=== PATIENT | male | born 1960 | race Caucasian/White ===

== ENCOUNTER 2018-08-14 01:31 | Emergency (ER) | payer OTHER ==
[2018-08-14] MEDS ORDERED: NS 1,000 ML IV ONE (01:41)
[2018-08-14] MEDS ORDERED: levETIRAcetam 1000MG/NACL 100 ML IV ONE (01:45)
--- NOTE | 2018-08-14 01:45 | EDPHY ---
H & P Stated Complaint: Seizure Time Seen by Provider: 08/14/18 01:42 HPI/ROS: HPI CHIEF COMPLAINT: Seizure, bloody nose HISTORY OF PRESENT ILLNESS: This patient is a 58-year-old male, he arrives to the emergency room by EMS after he had what is believed to be a seizure. His called 911 for this seizure. His reports that she awoke this evening with loud respirations. She reports that her was face down the bed and she heard him breathing very funny and heavy and loud. This woke her from sleep. His face was down the pillow there was blood everywhere. Apparently had a bloody nose during this event. He was postictal E event. EMS arrived to find him confused postictal. However this gradually cleared during transport to the emergency room. Upon arrival to the emergency room is no longer postictal. He did bite his tongue without any significant laceration. He was incontinent of urine. He does have a history of seizures. He had 2 seizures in 1999, and most recently had a seizure January. He was followed up by Neurology and did not drive for 3 months but he elected to not take any seizure medications. He was offered to take Keppra. Past Medical History: History of seizures x3. Past Surgical History: Denies significant surgical history Social History: Denies drugs or tobacco. Occasional alcohol use. Family History: Noncontributory ROS REVIEW OF SYSTEMS: 10 Systems were reviewed and negative with the exception of the elements mentioned in the history of present illness. Exam Constitutional triage nursing summary reviewed, vital signs reviewed, awake/ alert. Eyes normal conjunctivae and sclera, EOMI, PERRLA. HENT no significant epistaxis on exam, tongue bruising to the left lateral aspect of his tongue with no laceration. moist mucus membranes, no epistaxis, neck supple/ no meningismus, no raccoon eyes. Respiratory clear to auscultation bilaterally, normal breath sounds, no respiratory distress, no wheezing. Cardiovascular rate normal, regular rhythm, no murmur, no edema, distal pulses normal. Gastrointestinal soft, non-tender, no rebound, no guarding, normal bowel sounds, no distension, no pulsatile mass. Genitourinary no CVA tenderness. Musculoskeletal no midline vertebral tenderness, full range of motion, no calf swelling, no tenderness of extremities, no meningismus, good pulses, neurovascularly intact. Skin pink, warm, & dry, no rash, skin atraumatic. Neurologic awake, alert and oriented x 3, AAOx3, moves all 4 extremities equally, motor intact, sensory intact, CN II-XII intact, normal cerebellar, normal vision, normal speech. Psychiatric normal mood/affect. Heme/Lymph/Immune no lymphadenopathy. Differential Diagnosis: Includes but is not limited to in a particular order epilepsy, seizure, electrolyte disturbance. Medical Decision Making: Plan for this patient IV establishment IV fluid bolus , CT scan head without contrast basic labs, observation. Re-evaluate. Re-evaluation: CT scan head without contrast faxed me by direct Radiology 2:14 a.m., no acute intracranial abnormality 6:00 a.m. patient has been observed for 4 hr no recurrent seizure activity. The patient received 1 g of Keppra here in the emergency room. Labs are reassuring. CT scan head without contrast negative. I discussed with the patient that he should be started on Keppra given this is his 4th seizure with 2 recent seizures. I also recommend he follows up with Neurology closely. Additionally no driving until cleared by Neurology. Additionally we discussed return precautions return emergency room if recurrent seizure another seizure. He is comfortable this plan comfortable being discharged. Source: Patient, EMS - Personal History Current Tetanus/Diphtheria Vaccine: Yes Current Tetanus Diphtheria and Acellular Pertussis (TDAP): Yes - Medical/Surgical History Hx Asthma: No Hx Chronic Respiratory Disease: No Hx Diabetes: No Hx Cardiac Disease: No Hx Renal Disease: No Hx Cirrhosis: No Hx Alcoholism: No Hx HIV/AIDS: No Hx Splenectomy or Spleen Trauma: No Other PMH: seizures, knee sgy - Social History Smoking Status: Never smoked Constitutional: Initial Vital Signs Temperature (C) 36.7 C 08/14/18 01:36 Heart Rate 96 08/14/18 01:36 Respiratory Rate 18 08/14/18 01:36 Blood Pressure 166/102 H 08/14/18 01:36 O2 Sat (%) 91 L 08/14/18 01:36 O2 Delivery Mode Room Air Allergies/Adverse Reactions: No Known Allergies Allergy (Verified 08/14/18 01:34) Home Medications: Medication Instructions Recorded levETIRAcetam [Keppra 500 mg (*)] 500 mg PO BID #60 tab 08/14/18 Medical Decision Making - Data Points Laboratory Results: Laboratory Results 08/14/18 01:55 08/14/18 01:55 Medications Given: Discontinued Medications Sodium Chloride (Ns) 1,000 mls @ 0 mls/hr IV ONCE ONE; Wide Open PRN Reason: Protocol Stop: 08/14/18 01:42 Last Admin: 08/14/18 01:46 Dose: 1,000 mls Levetiracetam (Keppra (Premix)) 100 mls @ 400 mls/hr IV EDNOW ONE Stop: 08/14/18 01:59 Last Admin: 08/14/18 02:14 Dose: 100 mls Departure - Departure Disposition: Home, Routine, Self-Care Clinical Impression: Seizure disorder Condition: Good Instructions: Levetiracetam (By mouth), Epilepsy (ED) Additional Instructions: 1.Follow up with Neurology 2. do not drive until cleared by neurology. Referrals: NONE *PRIMARY CARE P,. [Primary Care Provider] - As per Instructions Fareed Valle DO [Medical Doctor] - As per Instructions Prescriptions: levETIRAcetam [Keppra 500 mg (*)] 500 mg PO BID #60 tab
[2018-08-14 02:01] LABS: PLATELET COUNT 186 10^3/uL (150-400)
[2018-08-14 05:26] VITALS: BP 116/74
== END 2018-08-14 06:13 | disposition home or self-care (01) ==
LOC: EDUNIT#
DX: G40.909 Epilepsy, unspecified, not intractable, without status epilepticus (principal); E86.9 Volume depletion, unspecified
CPT/HCPCS: 96374; J1953